=== PATIENT | female | born 1995 | race African-American/Black ===

== ENCOUNTER 2017-02-02 16:48 | Emergency (ER) | payer MEDICAID ==
--- NOTE | 2017-02-02 19:19 | EDM.PDOC ---
ED HPI GENERAL MEDICAL PROBLEM - General Chief Complaint: Chest Pain Stated Complaint: R SIDE CHEST AND BREAST PAIN Time Seen by Provider: 02/02/17 17:20 Source of Information: Reports: Patient History Limitations: Reports: No Limitations - History of Present Illness INITIAL COMMENTS - FREE TEXT/NARRATIVE: 21-year-old female presents for evaluation treatment of chest pain and breast pain. Reports this has been going on for 2 weeks. Patient reports a painful mass in her right breast. States it has been there for quite some time. Seems to grow bigger then smaller at times. Currently is causing discomforting. No nipple discharge, fevers, chills erythema or drainage from the area. Patient also complains of chest pain. Reports that she gets sharp chest pains that last 10-15 minutes and radiating from the center of her chest towards her right breast. She reports associated symptoms of nausea, chills and shortness of breath. No current chest discomfort. Last episode was yesterday. Sounds like this has been going on for quite some time. Patient also complains of mid abdominal pain. She describes this as a cramping sensation but states is worse in her menstrual cramps. She also reports constipation. No diarrhea. She has not a surgeries to her abdomen. Patient also reports her last menstrual cycle ended about one week ago. States that it was much heavier than normal. Reports that she is passing large clots. She is not on any oral contraceptives pills. Location: Reports: Chest, Abdomen Chest Pain Score (Numeric/FACES): 8 - Related Data Allergies Allergy/AdvReac Type Severity Reaction Status Date / Time seafoo Allergy Airway Uncoded 02/02/17 17:12 Tightness Home Meds: Home Meds Ferrous Sulfate 325 mg PO TIDMEALS #90 tablet 02/02/17 [Rx] Past Medical History - Past Health History Medical/Surgical History: Denies Medical/Surgical History Social & Family History - Tobacco Use Smoking Status *Q: Never Smoker ED ROS GENERAL - Review of Systems Review Of Systems: See Below Constitutional: Denies: Fever Respiratory: Reports: Shortness of Breath Cardiovascular: Reports: Chest Pain GI/Abdominal: Reports: Abdominal Pain, Constipation, Nausea. Denies: Diarrhea, Vomiting Skin: Reports: Other (right breast lump , pain; no nipple discharge or overlying erythema) ED EXAM, GENERAL - Physical Exam Exam: See Below Exam Limited By: No Limitations General Appearance: Alert, WD/WN, No Apparent Distress Ears: Normal External Exam Nose: Normal Inspection Throat/Mouth: Normal Inspection, Normal Voice, No Airway Compromise Respiratory/Chest: No Respiratory Distress, Lungs Clear, Normal Breath Sounds, Other (approximately melanie sized movable, cystic like mass to the right lateral breast) Cardiovascular: Normal Peripheral Pulses, Regular Rate, Rhythm, No Murmur GI/Abdominal: Normal Bowel Sounds, Soft, Non-Tender Neurological: Alert, Oriented, Normal Cognition Psychiatric: Normal Affect, Normal Mood Skin Exam: Warm, Dry, Normal Color. No: Erythema EKG INTERPRETATION EKG Date: 02/02/17 Time: 17:15 Rhythm: NSR Rate (Beats/Min): 60 [place]: Normal P-Wave: Present QRS: Normal ST-T: Normal QT: Normal EKG Interpretation Comments: NSR at 60 bpm. RSR - V2 - normal variant. otherwise normal EKG. Reviewed by myself and Dr. Haque. Course - Vital Signs Last Recorded V/S: Last Vital Signs Temp 36.6 C 02/02/17 19:30 Pulse 63 02/02/17 19:30 Resp 18 02/02/17 19:30 BP 98/71 02/02/17 19:30 Pulse Ox 98 02/02/17 19:30 - Orders/Labs/Meds Orders: Active Orders 24 hr Category Date Time Status EKG Documentation Completion [RC] ASDIRECTED Care 02/02/17 19:44 Active Chest 2V [CR] Stat Exams 02/02/17 17:35 Ordered KUB [Abdomen 1V Flat] [CR] Stat Exams 02/02/17 17:35 Ordered EKG 12 Lead [EK] Stat Ther 02/02/17 19:00 Ordered Labs: Laboratory Tests 02/02/17 02/02/17 02/02/17 Range/Units 17:50 17:50 17:50 WBC 5.71 (3.98-10.04) K/mm3 RBC 3.81 L (3.98-5.22) M/mm3 Hgb 9.0 L (11.2-15.7) gm/L Hct 28.9 L (34.1-44.9) % MCV 75.9 L (79.4-94.8) fl MCH 23.6 L (25.6-32.2) pg MCHC 31.1 L (32.2-35.5) g/dl RDW Std Deviation 48.2 H (36.4-46.3) fL Plt Count 395 H (182-369) K/mm3 MPV 9.4 (9.4-12.3) fl Neut % (Auto) 35.3 (34.0-71.1) % Lymph % (Auto) 48.5 (19.3-51.7) % [place]cl[place]an % (Auto) 14.2 H (4.7-12.5) % Eos % (Auto) 1.6 (0.7-5.8) Baso % (Auto) 0.2 (0.1-1.2) % Neut # (Auto) 2.02 (1.56-6.13) K/mm3 Lymph # (Auto) 2.77 (1.18-3.74) K/mm3 [place]clennan # (Auto) 0.81 H (0.24-0.36) K/mm3 Eos # (Auto) 0.09 (0.04-0.36) K/mm3 Baso # (Auto) 0.01 (0.01-0.08) K/mm3 Manual Slide Review Not Reportable Sodium 141 (136-145) mEq/L Potassium 3.7 (3.5-5.1) mEq/L Chloride 104 (98-107) mEq/L Carbon Dioxide 28 (21-32) mEq/L Anion Gap 12.7 (5-15) BUN 13 (7-18) mg/dL Creatinine 0.9 (0.55-1.02) mg/dL Est Cr Clr Drug Dosing 78.54 mL/min Estimated GFR (MDRD) > 60 (>60) mL/min BUN/Creatinine Ratio 14.4 (14-18) Glucose 87 (74-106) mg/dL Calcium 8.9 (8.5-10.1) mg/dL Iron (50-170) ug/dL TIBC (100-400) ug/dL % Saturation (20-55) % Transferrin (202-364) mg/dL Total Bilirubin 0.5 (0.2-1.0) mg/dL AST 17 (15-37) U/L ALT 20 (14-59) U/L Alkaline Phosphatase 91 (46-116) U/L Total Protein 8.0 (6.4-8.2) g/dl Albumin 3.6 (3.4-5.0) g/dl Globulin 4.4 gm/dL Albumin/Globulin Ratio 0.8 L (1-2) HCG, Qual Negative (NEGATIVE) 02/02/17 Range/Units 17:50 WBC (3.98-10.04) K/mm3 RBC (3.98-5.22) M/mm3 Hgb (11.2-15.7) gm/L Hct (34.1-44.9) % MCV (79.4-94.8) fl MCH (25.6-32.2) pg MCHC (32.2-35.5) g/dl RDW Std Deviation (36.4-46.3) fL Plt Count (182-369) K/mm3 MPV (9.4-12.3) fl Neut % (Auto) (34.0-71.1) % Lymph % (Auto) (19.3-51.7) % [place]cl[place] % (Auto) (4.7-12.5) % Eos % (Auto) (0.7-5.8) Baso % (Auto) (0.1-1.2) % Neut # (Auto) (1.56-6.13) K/mm3 Lymph # (Auto) (1.18-3.74) K/mm3 [place] # (Auto) (0.24-0.36) K/mm3 Eos # (Auto) (0.04-0.36) K/mm3 Baso # (Auto) (0.01-0.08) K/mm3 Manual Slide Review Sodium (136-145) mEq/L Potassium (3.5-5.1) mEq/L Chloride (98-107) mEq/L Carbon Dioxide (21-32) mEq/L Anion Gap (5-15) BUN (7-18) mg/dL Creatinine (0.55-1.02) mg/dL Est Cr Clr Drug Dosing mL/min Estimated GFR (MDRD) (>60) mL/min BUN/Creatinine Ratio (14-18) Glucose (74-106) mg/dL Calcium (8.5-10.1) mg/dL Iron 18 L (50-170) ug/dL TIBC 400 (100-400) ug/dL % Saturation 5 L (20-55) % Transferrin 320 (202-364) mg/dL Total Bilirubin (0.2-1.0) mg/dL AST (15-37) U/L ALT (14-59) U/L Alkaline Phosphatase (46-116) U/L Total Protein (6.4-8.2) g/dl Albumin (3.4-5.0) g/dl Globulin gm/dL Albumin/Globulin Ratio (1-2) HCG, Qual (NEGATIVE) - Radiology Interpretation Free Text/Narrative:: chest 2 view shows no acute intrathoracic process. KUB shows no acute process. - Re-Assessments/Exams Free Text/Narrative Re-Assessment/Exam: 02/02/17 20:02 I reviewed the x-ray and lab results with the patient. Will start her on some oral iron for her iron deficiency anemia. I will have her follow up with OB for possible control for menorrhagia and for follow-up for her anemia. When I reviewed the results the patient. She states that she has been on iron in the past. She has been told that she has iron deficiency anemia in the past. States that she is not a much me. Reports me that she has been eating lots of ice. I will refer to the surgeon should like to have this cyst on her breast removed. Discharge instructions as documented. Departure - Departure Time of Disposition: 20:17 Disposition: Home, Self-Care 01 Condition: Good Clinical Impression: Iron deficiency anemia, Menorrhagia with regular cycle, Cyst of breast, right, solitary - Discharge Information Prescriptions: Ferrous Sulfate 325 mg PO TIDMEALS #90 tablet Instructions: Iron Deficiency Anemia, Adult, Menorrhagia, [id number] Referrals: PCP,None [Primary Care Provider] - Eliezer Paniagua MD [Physician] - Wilfredo Gutierrez MD [Physician] - Forms: ED Department Discharge Additional Instructions: take the iron 1 tab 3 times a day with meals. Follow-up with OB for your menstrual cycle and for recheck on your iron. Recommend Dr. Gutierrez or Gladys Acosta. Please call [phone] to schedule with either one of these providers. Recommend Dr. Paniagua for the cyst in your breast. Please call [phone] to schedule with him. Recommend increasing your iron intake by eating more red meat, spinich, cashews orother high iron foods. Please return to the ER if your symptoms change or worsen. - My Orders Last 24 Hours: My Active Orders 02/02/17 17:35 Chest 2V [CR] Stat KUB [Abdomen 1V Flat] [CR] Stat 02/02/17 19:00 EKG 12 Lead [EK] Stat 02/02/17 19:44 EKG Documentation Completion [RC] ASDIRECTED - Assessment/Plan Last 24 Hours: My Active Orders 02/02/17 17:35 Chest 2V [CR] Stat KUB [Abdomen 1V Flat] [CR] Stat 02/02/17 19:00 EKG 12 Lead [EK] Stat 02/02/17 19:44 EKG Documentation Completion [RC] ASDIRECTED
--- NOTE | 2017-02-03 09:09 | CR ---
Abdomen: Upright view of the abdomen was obtained. Scattered gas within colon and small bowel is seen. Several air-fluid levels are seen within distal nondilated small bowel. No free air is seen. Bony structures are within normal limits for the patient's age. No abnormal calcifications are seen. Impression: 1. Nonspecific upright view of the abdomen. Diagnostic code #1
--- NOTE | 2017-02-03 09:09 | CR ---
Chest: Two views of the chest were obtained. Comparison: No prior chest x-ray. Heart size and mediastinum are normal. Lungs are clear. Bony structures appear within normal limits for the patient's age. Impression: 1. Nothing acute is identified on two-view chest x-ray. Diagnostic code #1
== END 2017-02-02 19:35 | disposition home or self-care (01) ==
LOC: JD.ED 16:48
DX: N60.01 Solitary cyst of right breast (principal); N92.0 Excessive and frequent menstruation with regular cycle; D50.9 Iron deficiency anemia, unspecified; Z91.013 Allergy to seafood
CPT/HCPCS: 36415; 71020; 71020-26; 74000; 74000-26; 80053; 83540; 84466; 84703; 85025; 93005; 93010; 99285-25

== ENCOUNTER 2019-02-07 16:51 | Emergency (ER) | payer MEDICAID ==
[2019-02-07] MEDS ORDERED: Ketorolac 30 MG/ML SDV IVPUSH ONE (17:25)
[2019-02-07] MEDS ORDERED: Sodium Chloride 0.9% 10 ML Syringe FLUSH PRN (17:25)
[2019-02-07] MEDS ORDERED: diphenhydrAMINE 50 MG/ML SDV IVPUSH ONE (17:25)
[2019-02-07] MEDS ORDERED: Metoclopramide 10 MG/2 ML SDV IVPUSH ONE (17:25)
[2019-02-07] MEDS ORDERED: FLU Vacc QS2019-20(6MOS+)/PF 60 MCG/0.5 ML SYRINGE IM ONE (17:30)
[2019-02-07] MEDS ORDERED: Sodium Chloride 0.9% 1,000 ML IV SCH (17:30)
--- NOTE | 2019-02-07 17:32 | EDM.PDOC ---
ED HPI GENERAL MEDICAL PROBLEM - General Chief Complaint: Headache Stated Complaint: HEADACHE Time Seen by Provider: 02/07/19 17:04 Source of Information: Reports: Patient, RN Notes Reviewed History Limitations: Reports: No Limitations - History of Present Illness INITIAL COMMENTS - FREE TEXT/NARRATIVE: Patient is a 23-year-old female who presents to the ED for evaluation of a frontal headache. She notes that she has been having this headache, recent cold -like symptoms, sinus congestion for the last 2-3 weeks now. She states that the headache has been present the whole time, and the cold-like symptoms have also been present with this. Patient is still complaining of a sore throat, she denies any fevers or chills. She was taking some Tylenol for this, but it does not seem to be helping the headache at all. The patient also complains of some white vaginal discharge, and lower abdominal cramping that does come and go. She does not think she could be , she is on Depo-Provera, she states that her last menstrual period was yesterday. She notes that she has irregular periods. She states that she is having unprotected sex with one male , and is not concerned about any risk of exposure for STDs. Frontal Headache Pain Score (Numeric/FACES): 10 - Related Data Allergies Allergy/AdvReac Type Severity Reaction Status Date / Time seafoo Allergy Airway Uncoded 11/21/18 10:03 Tightness Home Meds: Home Meds Amoxicillin/Clavulanate K [Augmentin 875-125 MG] 1 tab PO BID #14 tablet [Rx] metroNIDAZOLE [Flagyl] 500 mg PO BID #14 tab 02/07/19 [Rx] Past Medical History - Past Health History Medical/Surgical History: Denies Medical/Surgical History HEENT History: Reports: Sinusitis [employer] History: Reports: Hematologic History: Reports: Iron Deficiency - Infectious Disease History Infectious Disease History: Reports: None - Past Surgical History Other HEENT Surgeries/Procedures: history of sinus infections Social & Family History - Tobacco Use Smoking Status *Q: Current Every Day Smoker Years of Tobacco use: 2 Packs/Tins Daily: 0.2 - Caffeine Use Caffeine Use: Reports: None - Recreational Drug Use Recreational Drug Use: No ED ROS GENERAL - Review of Systems Review Of Systems: See Below Constitutional: Denies: Fever, Chills HEENT: Denies: Vision Change Respiratory: Denies: Shortness of Breath Cardiovascular: Denies: Chest Pain GI/Abdominal: Reports: Abdominal Pain (lower abd pain/pelvic cramping). Denies : Constipation, Diarrhea, Nausea, Vomiting : Reports: Discharge (thin white discharge), Irregular Menses. Denies: Dysuria, Frequency, Urgency Musculoskeletal: Reports: No Symptoms Skin: Reports: No Symptoms Neurological: Reports: Headache. Denies: Dizziness Psychiatric: Reports: No Symptoms Hematologic/Lymphatic: Reports: No Symptoms Immunologic: Reports: No Symptoms - Physical Exam Exam: See Below Exam Limited By: No Limitations General Appearance: Alert, WD/WN, No Apparent Distress Eye Exam: Bilateral Eye: EOMI, Normal Inspection, PERRL Ears: Normal External Exam, Normal Canal, Hearing Grossly Normal, Normal TMs Nose: Normal Inspection, Other (bilateral injected turbinates with whitish looking film) Throat/Mouth: Normal Inspection, Normal Lips, Normal Teeth, Normal Gums, Normal Oropharynx, Normal Voice, No Airway Compromise Head Exam: Atraumatic, Normocephalic, Sinus Tenderness (bilateral frontal sinus tenderness) Neck: Normal Inspection, Supple, Non-Tender, Full Range of Motion Respiratory/Chest: No Respiratory Distress, Lungs Clear, Normal Breath Sounds, No Accessory Muscle Use, Chest Non-Tender Cardiovascular: Normal Peripheral Pulses, Regular Rate, Rhythm, No Murmur GI/Abdominal: Normal Bowel Sounds, Soft, Non-Tender, No Distention, No Mass Neuro Exam (Abbreviated): Alert, Oriented, Normal Cognition, No Motor/Sensory Deficits Extremities: Normal Inspection, Normal Capillary Refill Psychiatric: Normal Affect, Normal Mood Skin Exam: Warm, Dry, Intact, Normal Color, No Rash Course - Vital Signs Last Recorded V/S: Last Vital Signs Temp 97.8 F 02/07/19 17:06 Pulse 104 H 02/07/19 17:06 Resp 16 02/07/19 17:06 BP 100/70 02/07/19 17:06 Pulse Ox 98 02/07/19 17:06 - Orders/Labs/Meds Orders: Active Orders 24 hr Category Date Time Status Influenza Vaccine Charge [RC] .DISCHARGE Care 02/07/19 17:16 Active Peripheral IV Care [RC] . DIRECTED Care 02/07/19 17:25 Active CULTURE URINE [RM] Routine Lab 02/07/19 17:25 Received Sodium Chloride 0.9% [Normal Saline] 1,000 ml Med 02/07/19 17:30 Active IV ASDIRECTED Sodium Chloride 0.9% [Saline Flush] Med 02/07/19 17:25 Active 10 ml FLUSH ASDIRECTED PRN Peripheral IV Insertion Adult [OM.PC] Routine Oth 02/07/19 17:25 Ordered Medication Orders Sodium Chloride (Normal Saline) 1,000 mls @ 125 mls/hr IV ASDIRECTED ROSAURA Last Admin: 02/07/19 18:03 Dose: 125 mls/hr Sodium Chloride (Saline Flush) 10 ml FLUSH ASDIRECTED PRN PRN Reason: Keep Vein Open Last Admin: 02/07/19 18:07 Dose: 10 ml Labs: Laboratory Tests 02/07/19 Range/Units 17:28 Urine Color Yellow (Yellow) Urine Appearance Clear (Clear) Urine pH 6.5 (5.0-8.0) Ur Specific [place] 1.015 (1.005-1.030) Urine Protein Negative (Negative) Urine Glucose (UA) Negative (Negative) Urine Ketones Negative (Negative) Urine Occult Blood Trace-intact H (Negative) Urine Nitrite Negative (Negative) Urine Bilirubin Negative (Negative) Urine Urobilinogen 0.2 (0.2-1.0) Ur Leukocyte Esterase 1+ H (Negative) Urine RBC 0-5 (0-5) /hpf Urine WBC 5-10 H (0-5) /hpf Ur Squamous Epith Cells 5-10 H (0-5) /hpf Urine Bacteria Few (FEW) /hpf Urine Mucus Not seen (FEW) /hpf Meds: Medications Generic Name Dose Route Start Last Admin Trade Name Freq PRN Reason Stop Dose Admin Sodium Chloride 1,000 mls @ 125 mls/hr 02/07/19 17:30 02/07/19 18:03 Normal Saline IV 125 mls/hr ASDIRECTED ROSAURA Administration Sodium Chloride 10 ml 02/07/19 17:25 02/07/19 18:07 Saline Flush FLUSH 10 ml ASDIRECTED PRN Administration Keep Vein Open Discontinued Medications Generic Name Dose Route Start Last Admin Trade Name Freq PRN Reason Stop Dose Admin Diphenhydramine HCl 25 mg 02/07/19 17:25 02/07/19 17:54 Benadryl IVPUSH 02/07/19 17:26 25 mg ONETIME ONE Administration Influenza Virus Vaccine 60 mcg 02/07/19 17:30 02/07/19 17:44 Fluzone Quad [id number] Syringe IM 02/07/19 17:31 60 mcg .ONCE ONE Administration Ketorolac Tromethamine 30 mg 02/07/19 17:25 02/07/19 17:50 Toradol IVPUSH 02/07/19 17:26 30 mg ONETIME ONE Administration Metoclopramide HCl 10 mg 02/07/19 17:25 02/07/19 17:46 Reglan IVPUSH 02/07/19 17:26 10 mg ONETIME ONE Administration - Re-Assessments/Exams Free Text/Narrative Re-Assessment/Exam: 02/07/19 17:35 Patient presents to the ED for evaluation of a headache, this been present for the past 3 weeks. I believe that she clinically has a bacterial sinusitis due to the length of symptoms, will start her on an antibiotic for this, however for the headache today, I will start her with some IV fluids, 30 mg Toradol, 10 mg Reglan, and 25 mg Benadryl. I did order wet prep and urinalysis for her vaginal discharge for further evaluation. 02/07/19 19:06 Patient's urinalysis suggests slight contamination. I will send this for culture for confirmation, patient's wet prep however shows that she has bacterial vaginosis, patient will be started on metronidazole twice a day 7 days for this. Patient was reassessed at bedside, states that her headache is much better. Departure - Departure Time of Disposition: 19:06 Disposition: Home, Self-Care 01 Condition: Fair Clinical Impression: Bacterial vaginosis Sinusitis, acute Qualifiers: Sinusitis location: frontal Recurrence: non-recurrent Qualified Code(s): J01.10 - Acute frontal sinusitis, unspecified - Discharge Information *PRESCRIPTION DRUG MONITORING PROGRAM REVIEWED*: No *COPY OF PRESCRIPTION DRUG MONITORING REPORT IN PATIENT SHAKEEL: No Prescriptions: Amoxicillin/Clavulanate K [Augmentin 875-125 MG] 1 tab PO BID #14 tablet metroNIDAZOLE [Flagyl] 500 mg PO BID #14 tab Instructions: Bacterial Vaginosis, Sinusitis, Adult, [id number] Referrals: PCP,None [Primary Care Provider] - Forms: ED Department Discharge, ED Return to Work/School Form Additional Instructions: You were evaluated in the ER today regarding your headache, and vaginal symptoms. Your headache is likely due to a bacterial sinusitis, you have been started on an antibiotic, Augmentin, please take as prescribed. It also appears that you have bacterial vaginosis, treatment for this is another antibiotic, metronidazole, 1 tab twice a day 7 days. Recommend not drinking alcohol while taking this medication, as this can make you nauseous and sick feeling. Please start taking a probiotic, as the antibiotic used for your sinus infection can cause diarrhea. Your urine screen was sent for culture, as it suggested that it might be slightly contaminated with skin cells, you will be called if you should need antibiotics for this. Recommend you try taking some [id number] nasal decongestants, such as pseudoephedrine, phenylephrine, sinus rinses. You may take 600 mg ibuprofen or 500 mg Tylenol every 6 hours as needed for further headache/pain relief. Please return to the ED if your symptoms should change or worsen. - My Orders Last 24 Hours: My Active Orders 02/07/19 17:16 Influenza Vaccine Charge [RC] .DISCHARGE 02/07/19 17:25 Peripheral IV Care [RC] . DIRECTED CULTURE URINE [RM] Routine Sodium Chloride 0.9% [Saline Flush] 10 ml FLUSH ASDIRECTED PRN Peripheral IV Insertion Adult [OM.PC] Routine 02/07/19 17:30 Sodium Chloride 0.9% [Normal Saline] 1,000 ml IV ASDIRECTED - Assessment/Plan Last 24 Hours: My Active Orders 02/07/19 17:16 Influenza Vaccine Charge [RC] .DISCHARGE 02/07/19 17:25 Peripheral IV Care [RC] . DIRECTED CULTURE URINE [RM] Routine Sodium Chloride 0.9% [Saline Flush] 10 ml FLUSH ASDIRECTED PRN Peripheral IV Insertion Adult [OM.PC] Routine 02/07/19 17:30 Sodium Chloride 0.9% [Normal Saline] 1,000 ml IV ASDIRECTED
== END 2019-02-07 19:38 | disposition home or self-care (01) ==
LOC: JD.ED 16:51
DX: N76.0 Acute vaginitis (principal); B96.89 Other specified bacterial agents as the cause of diseases classified elsewhere; J01.10 Acute frontal sinusitis, unspecified; F17.210 Nicotine dependence, cigarettes, uncomplicated; Z23 Encounter for immunization; Z91.013 Allergy to seafood
CPT/HCPCS: 81001; 87086; 87210; 87808; 90471; 90686; 96361; 96374; 96375; 99284; J1200; J1885; J2765; J7040; 99283